=== PATIENT | female | born 1960 | race Caucasian/White ===

== ENCOUNTER 2023-05-02 18:34 | Emergency (ER) | payer MEDICARE ==
[~2023-05-02] VITALS: Ht 162.6 cm; Wt 97.1 kg
[2023-05-02 18:38] VITALS: BP 133/75
[2023-05-02] MEDS ORDERED: ELIQUIS5 M2 PO ×2 (19:52→19:53)
== END 2023-05-02 20:00 | disposition home or self-care (01) ==
LOC: ER 18:34
DX: I82.622 Acute embolism and thrombosis of deep veins of left upper extremity (principal); Z88.2 Allergy status to sulfonamides; Z88.5 Allergy status to narcotic agent; Z79.899 Other long term (current) drug therapy
CPT/HCPCS: 99282; A9270

== ENCOUNTER 2023-05-07 09:04 | Day surgery (SDC) | payer MEDICARE ==
[~2023-05-07] VITALS: Ht 165.1 cm; Wt 98.0 kg
[~2023-05-07 09:04] MED LIST: ELIQUIS5 M2 PO
[2023-05-07 09:26] VITALS: BP 166/89
[2023-05-07] MEDS ORDERED: ATOR40TA PO (09:32)
[2023-05-07] MEDS ORDERED: CYCL10 PO (09:33)
[2023-05-07] MEDS ORDERED: Celexa20 MG PO (09:33)
[2023-05-07] MEDS ORDERED: Prinivil10 MG PO (09:34)
[2023-05-07] MEDS ORDERED: PANT40 PO (09:34)
[2023-05-07] MEDS ORDERED: GLIP5 PO (09:34)
[2023-05-07] MEDS ORDERED: TRULICITY0.75 MG/01 SC (09:35)
[2023-05-07] MEDS ORDERED: TAMO10 PO (09:35)
--- NOTE | 2023-05-07 13:00 | NUR ---
PATIENT ARRIVED TO RECOVERY ROOM LAYING IN BED. PATIENT CONVERSING APPROPRIATELY, DENYING ANY PAIN. VSS ON RA
[2023-05-07 13:01] VITALS: BP 167/94
[2023-05-07 13:15] VITALS: BP 139/84
[2023-05-07 13:30] VITALS: BP 156/95
[2023-05-07 14:30] VITALS: BP 153/83
[2023-05-07 15:00] VITALS: BP 146/85
--- NOTE | 2023-05-07 15:30 | NUR ---
PT SUTURES REMOVED FROM L UPPER ARM. REDRESSED WITH DOT DRESSING AND PRESSURE DSG APPLIED. PT TOLERATES WELL. VSS. NADN. PT AMBULATES TO RESTROOM AND BACK WITHOUT DIFF. PT IV DC'D. CATH INTACT. PRESSURE DSG APPLIED. PT DRESSES SELF WITHOUT DIFF. PT DC TO HOME VIA S/O BY WC
== END 2023-05-07 16:15 | disposition home or self-care (01) ==
LOC: MHTC 09:04
DX: I82.B22 Chronic embolism and thrombosis of left subclavian vein (principal); M79.602 Pain in left arm; S45 Injury of blood vessels at shoulder and upper arm level; Z88.2 Allergy status to sulfonamides; Z88.5 Allergy status to narcotic agent
CPT/HCPCS: 37187; 37248; 75820; 76937; 99152; 99153; C1725; C1757; C1769; C1887; C1894; J1644; J2250; J2405; J3010; J7030; Q9967

== ENCOUNTER 2023-06-04 09:41 | Day surgery (SDC) | payer MEDICARE ==
[~2023-06-04] VITALS: Ht 165.1 cm; Wt 96.1 kg
[~2023-06-04 09:41] MED LIST changes: +ATOR40TA PO; +CYCL10 PO; +Celexa20 MG PO; +GLIP5 PO; +PANT40 PO; +Prinivil10 MG PO; +TAMO10 PO; +TRULICITY0.75 MG/01 SC
[2023-06-04] MEDS ORDERED: TREMFYA100 MG/11 SQ (10:26)
[2023-06-04] MEDS ORDERED: FLUT1DIS5 INH (10:27)
--- NOTE | 2023-06-04 13:27 | NUR ---
06/04/23 1327 Shanna Rivera LIDOCAINE 2% WITH EPI 1:100,000 MIXED 1:1 WITH NORMAL SALINE TO MAKE LIDOCAINE 1% WITH EPI 1:200,000 FOR INJECTION AT THE OPSITE BY DR GEORGE. 4ML INJECTED BEFORE INCISION.
--- NOTE | 2023-06-04 15:09 | NUR ---
06/04/23 1509 Nata Jackson PT INTO RECLINER WITH SBA. C/O 04/20 PAIN AT OPSITE. MEDICATED WITH FENTANYL 12.5MCG PER ORDERS. O2 SATS DROP TO 86-88% WHEN PT FALLS ASLEEP. PT ENCOURAGED TO BREATHE AND O2 SATS RAISE TO 94%. O2 VIA FACE TENT PLACED AFTER FENTANYL ADMINISTRATION TO MAINTAIN O2 SATS ABOVE 92%. PT TOLERATING JUICE. WILL CONTINUE TO MONITOR.
[2023-06-04 15:29] VITALS: BP 166/91
== END 2023-06-04 16:05 | disposition home or self-care (01) ==
LOC: ORSCSDS 09:41
PROVIDERS: Otolaryngology
PROC: 0GTH0ZZ Resection of Right Thyroid Gland Lobe, Open Approach (ICD-10-PCS; principal; 2023-06-04 11:00)
DX: E04.1 Nontoxic single thyroid nodule (principal); E03.9 Hypothyroidism, unspecified; I10 Essential (primary) hypertension; E11.9 Type 2 diabetes mellitus without complications; E66.9 Obesity, unspecified; Z68.35 Body mass index [BMI] 35.0-35.9, adult; J45.909 Unspecified asthma, uncomplicated; K21.9 Gastro-esophageal reflux disease without esophagitis; Z79.899 Other long term (current) drug therapy; Z79.01 Long term (current) use of anticoagulants
CPT/HCPCS: 82947; 88307; 93005; 93010; A9270; J1170; J2704; J3010; J7120

== ENCOUNTER 2024-05-26 06:27 | Day surgery (SDC) | payer MEDICARE ==
[~2024-05-26] VITALS: Ht 162.6 cm; Wt 96.0 kg
[~2024-05-26 06:27] MED LIST changes: +ANASTROZOLE1 M7 PO; +EUTHYROX75 MC1 PO; +FLUT1DIS5 INH; +MELO7.5 PO; +TREMFYA100 MG/11 SQ
[2024-05-26] MEDS ORDERED: Lidocaine 2%-Epineph 1:200000 20 ML SDV ONE (07:01)
[2024-05-26] MEDS ORDERED: ACIDOPHILUS1 EAC3 PO (07:22)
[2024-05-26] MEDS ORDERED: FISH OIL 1,0001 EA10 PO (07:22)
[2024-05-26] MEDS ORDERED: MAGCIT300 (07:23)
[2024-05-26] MEDS ORDERED: Lactated Ringer's 1,000 ML IV ONE ×3 (07:40→10:33)
[2024-05-26] MEDS ORDERED: Metoclopramide HCl 5MG / ML 2ML Vial ONE (08:27)
[2024-05-26] MEDS ORDERED: Midazolam HCl 1MG / ML 2ML Vial ONE (08:27)
[2024-05-26] MEDS ORDERED: Citric Acid/Sodium Citrate 30 ML BTL ONE (08:37)
[2024-05-26] MEDS ORDERED: propofoL 50 ML IV ONE (08:51)
[2024-05-26] MEDS ORDERED: Dexmedetomidine HCL 200 MCG / 2 ML ONE (08:51)
[2024-05-26] MEDS ORDERED: Lidocaine 2% Jelly Uro-Jet ONE (08:51)
[2024-05-26 12:08] VITALS: BP 91/57
[2024-05-26] MEDS ORDERED: FentaNYL Citrate 50 MCG/ML 2 ML Injection ONE (12:23)
[2024-05-26] MEDS ORDERED: Ketorolac Tromethamine 30mg Vial ONE (12:46)
--- NOTE | 2024-05-26 13:04 | NUR ---
05/26/24 1304 Lazaro Marks PT MAINTAINING O2 93-90% ON RA IN SDU WITH BREIF DROPS LOW 87%. PT REPORTING 8/10 PAIN (FLACC 6/10). DR. PONCE CONSULTED REGARDING OPIATE ADMINISTRATION. HE INSTRUCTED TO HOLD OPIATES UNTIL O2 SATURATION HIGHER. DR. PONCE ORDERED 15MG TORADOL, IF GFR >60. TORADOL WAS ADMINISTERED (SEE EMAR). PT'S STRIDOR IMPROVING.
--- NOTE | 2024-05-26 13:19 | NUR ---
05/26/24 1319 Lazaro Marks PT HYPOTENSIVE IN PAR (SEE VSS). DR. PONCE CONSULTED. HEAD OF BED LOWERED AND FLUIDS OPENED WIDE. AUDIBLE STRIDOR PRESENT WITH BREATHING, DESPITE CLEAR LUNG SOUNDS. DR. PONCE AWARE.
== END 2024-05-26 15:40 | disposition home or self-care (01) ==
LOC: ORSCSDS 06:27
PROVIDERS: Otolaryngology
PROC: 0CUT0JZ Supplement Right Vocal Cord with Synthetic Substitute, Open Approach (ICD-10-PCS; principal; 2024-05-26 08:15)
DX: J38.00 Paralysis of vocal cords and larynx, unspecified (principal); I10 Essential (primary) hypertension; E78.5 Hyperlipidemia, unspecified; J44.89 Other specified chronic obstructive pulmonary disease; E11.9 Type 2 diabetes mellitus without complications; Z86.718 Personal history of other venous thrombosis and embolism; Z79.01 Long term (current) use of anticoagulants; E66.9 Obesity, unspecified; Z68.36 Body mass index [BMI] 36.0-36.9, adult; Z79.899 Other long term (current) drug therapy; Z79.84 Long term (current) use of oral hypoglycemic drugs
CPT/HCPCS: 82947; A9270; C1713; J1885; J2250; J2704; J2765; J3010; J7120

== ENCOUNTER 2025-02-14 20:05 | Emergency (ER) | payer MEDICARE ==
[~2025-02-14] VITALS: Ht 162.6 cm; Wt 92.5 kg
[~2025-02-14 20:05] MED LIST changes: +ACIDOPHILUS1 EAC3 PO; +FISH OIL 1,0001 EA10 PO; +MAGCIT300
[2025-02-14 21:54] VITALS: BP 162/80
[2025-02-14] MEDS ORDERED: D5 IV SCH (22:00)
[2025-02-14] MEDS ORDERED: MAG SULFATE IV SCH (22:00)
[2025-02-14] MEDS ORDERED: Magnesium Sulf 2 GM/Water 50ML 100 ML IV ONE (22:20)
[2025-02-14] MEDS ORDERED: Magnesium Sulf 2 GM/Water 50ML 50 ML IV ONE (23:10)
== END 2025-02-15 00:39 | disposition home or self-care (01) ==
LOC: ER 20:05
DX: E83.42 Hypomagnesemia (principal); E87.6 Hypokalemia; E11.65 Type 2 diabetes mellitus with hyperglycemia; E03.9 Hypothyroidism, unspecified; E78.5 Hyperlipidemia, unspecified; Z88.2 Allergy status to sulfonamides; Z88.5 Allergy status to narcotic agent; Z88.8 Allergy status to other drugs, medicaments and biological substances; Z91.048 Other nonmedicinal substance allergy status; Z79.84 Long term (current) use of oral hypoglycemic drugs; Z79.890 Hormone replacement therapy; Z79.1 Long term (current) use of non-steroidal anti-inflammatories (NSAID); Z79.899 Other long term (current) drug therapy
CPT/HCPCS: 36415; 80053; 80061; 83036; 83735; 84100; 84439; 84443; 96365; 96366; 99283-25; J3475

== ENCOUNTER 2025-03-06 16:12 | Emergency (ER) | payer MEDICARE ==
[~2025-03-06] VITALS: Ht 162.6 cm; Wt 94.8 kg
[2025-03-06 16:14] VITALS: BP 166/67
[2025-03-06] MEDS ORDERED: Dexamethasone Sod Phos 10 MG/ML 1ML VIAL PO ONE (16:30)
[2025-03-06] MEDS ORDERED: Lidocaine 4% 1 Patch TOP ONE (16:30)
[2025-03-06] MEDS ORDERED: OXAYDO5 M1 PO (16:34)
[2025-03-06] MEDS ORDERED: TIZANIDINE HCL2 M1 PO (16:34)
== END 2025-03-06 17:31 | disposition home or self-care (01) ==
LOC: ER 16:12
DX: M54.17 Radiculopathy, lumbosacral region (principal); Z88.2 Allergy status to sulfonamides; Z88.5 Allergy status to narcotic agent; Z79.899 Other long term (current) drug therapy; Z79.84 Long term (current) use of oral hypoglycemic drugs
CPT/HCPCS: 99282; A9270; J1100

== ENCOUNTER 2025-03-12 07:37 | Emergency (ER) | payer MEDICARE ==
[~2025-03-12] VITALS: Ht 162.6 cm; Wt 94.8 kg
[~2025-03-12 07:37] MED LIST changes: +OXAYDO5 M1 PO; +TIZANIDINE HCL2 M1 PO
[2025-03-12 08:27] VITALS: BP 142/76
[2025-03-12] MEDS ORDERED: Methyl Salicylate/Menth/Camph 57 GM TUBE TOP ONE (08:40)
[2025-03-12] MEDS ORDERED: Ketorolac Tromethamine 15mg Vial IM ONE (08:40)
[2025-03-12] MEDS ORDERED: Dexamethasone Sod Phos 10 MG/ML 1ML VIAL PO ONE (11:05)
[2025-03-12] MEDS ORDERED: HYDROmorphone HCl/Pf 1MG SYR IM ONE (11:05)
[2025-03-12 11:16] LABS: Source, Urine Clean Catch
[2025-03-12 11:43] LABS: Bilirubin, Urine Neg (Neg); Color, Urine Yellow (P-Yellow); Glucose Qualitative, Urine Neg (Neg); Ketones, Urine Neg (Neg); Leukocyte Esterase, Urine 1+ (Neg); Protein, Urine 1+ (Neg); Specific Gravity, Urine 1.010 (1.003-1.022); Urobilinogen, Urine NORM (Normal)
[2025-03-12 11:52] LABS: Red Blood Cells, Urine 0-2 /hpf (0-2)
[2025-03-12] MEDS ORDERED: CYCL10 PO (14:47)
[2025-03-12] MEDS ORDERED: GABA300 PO (14:47)
== END 2025-03-12 15:19 | disposition home or self-care (01) ==
LOC: ER 07:37
PROVIDERS: Physician Assistant
DX: M54.17 Radiculopathy, lumbosacral region (principal); M54.40 Lumbago with sciatica, unspecified side; M19.90 Unspecified osteoarthritis, unspecified site; Z59.89 Other problems related to housing and economic circumstances; Z88.2 Allergy status to sulfonamides; Z88.5 Allergy status to narcotic agent; Z79.899 Other long term (current) drug therapy
CPT/HCPCS: 81001; 87077; 87086; 87186; 96372; 99283-25; A9270; J1100; J1171; J1885

== ENCOUNTER 2025-05-10 09:36 | Emergency (ER) | payer MEDICARE ==
[~2025-05-10] VITALS: Ht 157.5 cm; Wt 101.6 kg
[~2025-05-10 09:36] MED LIST changes: +GABA300 PO
[2025-05-10] MEDS ORDERED: Ondansetron HCl 2 MG / ML 2ML Vial IV ONE ×2 (09:50→13:00)
[2025-05-10 10:13] LABS: BASOPHILS ABSOLUTE AUTO 0.04 K/mm3 (0.00-0.23); BASOPHILS PERCENT AUTO 0 % (0-2); EOSINOPHILS ABSOLUTE AUTO 0.09 K/mm3 (0.00-0.68); EOSINOPHILS PERCENT AUTO 1 % (0-6); Hematocrit 34.9 % (33.0-51.0); Hemoglobin 11.5 g/dL (11.5-16.0); IMMATURE GRAN ABSOLUTE AUTO 0.07 K/mm3 (0.00-0.10); IMMATURE GRAN PERCENT AUTO 1 % (0-1); LYMPHOCYTES ABSOLUTE AUTO 1.82 K/mm3 (0.84-5.20); LYMPHOCYTES PERCENT AUTO 17 % (21-46); MONOCYTES ABSOLUTE AUTO 0.71 K/mm3 (0.16-1.47); MONOCYTES PERCENT AUTO 7 % (4-13); Mean Corpuscular HGB Conc 33.0 g/dL (31.5-36.5); Mean Corpuscular Volume 76 fL (80-100); NEUTROPHILS ABSOLUTE AUTO 8.16 K/mm3 (1.96-9.15); NEUTROPHILS PERCENT AUTO 75 % (41-73); NRBC ABSOLUTE 0.00 K/mm3 (0.00-0.02); NRBC Auto 0.0 /100 WBC (0.0-0.2); Platelet Count 409 K/mm3 (150-400); RDW Coefficient Variation 15.7 % (11.7-14.2); RDW Standard Deviation 42.6 fL (35.1-46.3)
[2025-05-10 10:40] LABS: Alanine Aminotransfer (ALT/SGP 20.0 U/L (12-78); Albumin, Blood 3.5 g/dL (3.4-5.0); Albumin/Globulin Ratio 0.8 (0.8-1.8); Anion Gap 14.0 mmol/L (3-11); Aspartate Aminotrans (AST/SGOT 15.0 U/L (12-37); Bilirubin, Total 0.4 mg/dL (0.1-1.0); Blood Urea Nitrogen 15.0 mg/dL (8-24); CO2, Blood 23.0 mmol/L (21-32); Calcium, Blood 9.3 mg/dL (8.5-10.1); Chloride, Blood 99.0 mmol/L (98-108); Creatinine, Blood 0.87 mg/dL (0.40-1.00); Globulin, Blood 4.6 g/dL (2.2-4.0); Glucose, Blood 234.0 mg/dL (70-99); Potassium, Blood 4.0 mmol/L (3.5-5.5); Sodium, Blood 132.0 mmol/L (136-145); Total Protein, Blood 8.1 g/dL (6.4-8.2)
[2025-05-10] MEDS ORDERED: Ketorolac Tromethamine 30mg Vial IV ONE (11:05)
[2025-05-10 11:16] LABS: Source, Urine Voided
[2025-05-10 11:16] LABS: CORONAVIRUS COVID-19 AG Negative (NEGATIVE)
[2025-05-10 11:25] LABS: Bilirubin, Urine Neg (Neg); Color, Urine Yellow (P-Yellow); Glucose Qualitative, Urine 1+ (Neg); Ketones, Urine 1+ (Neg); Leukocyte Esterase, Urine Neg (Neg); Protein, Urine 2+ (Neg); Specific Gravity, Urine 1.010 (1.003-1.022); Urobilinogen, Urine NORM (Normal)
[2025-05-10 11:56] LABS: Red Blood Cells, Urine Not Seen /hpf (0-2); White Blood Cells, Urine 0-2 /hpf (0-5)
[2025-05-10] MEDS ORDERED: ONDA4ODT MM (12:59)
[2025-05-10] MEDS ORDERED: LOPE2C PO (12:59)
[2025-05-10] MEDS ORDERED: Ondansetron HCl 2 MG / ML 2ML Vial ONE (13:25)
[2025-05-10 13:29] VITALS: BP 141/93
== END 2025-05-10 13:48 | disposition home or self-care (01) ==
LOC: ER 09:36
PROVIDERS: Emergency Medicine
DX: B34.9 Viral infection, unspecified (principal); Z79.51 Long term (current) use of inhaled steroids; Z79.899 Other long term (current) drug therapy; Z88.2 Allergy status to sulfonamides; Z88.5 Allergy status to narcotic agent; Z88.8 Allergy status to other drugs, medicaments and biological substances
CPT/HCPCS: 70450; 80053; 81001; 85025; 87086; 87428-QW; 93005; 93010; 96374; 96375; 96376; 99284-25; J1885; J2405